=== PATIENT | male | born 1965 | race Caucasian/White ===

== ENCOUNTER 2019-11-23 00:25 | Emergency (ER) | payer SELFPAY ==
[2019-11-23 00:32] VITALS: BP 132/90; PULSE 68; RESP 18; TEMP 36.4; O2SAT 98; BMI 25.1
--- NOTE | 2019-11-23 01:07 | ED_ITS ---
Entered by Stephanie Palomo, acting as scribe for Hortencia Malave MD Nov 23, 2019 00:25 HPI - Headache General: Chief Complaint: Headache Stated Complaint: MIGRAINES, STAGGERING Time Seen by Provider: 11/23/19 01:07 Source: patient and family Mode of arrival: ambulatory Limitations: no limitations History of Present Illness: HPI Narrative: 53 y/o male presents to the ED with complaint of SMITH. Pt states he has been having these episodes off and on since October. states they come on all of a sudden. They are usually triggered by smells or sounds. Pt states he had something similar to this occurr two years ago, but then it went away. MD elicited complaint: headache Pertinent past history: migraines Onset (ago): hour(s) Onset description: suddenly Location: left Severity: moderate Relieving factors: nothing Context: occurred at rest Associated symptoms: Deny chest pain, fever(s), nausea, rash or vomiting Review of Systems Const: Denies: fever or chills Eyes: Denies: change in vision ENMT: Denies: throat pain or mouth pain Card: Denies: chest pain Resp: Denies: shortness of breath GI: Denies: abdominal pain, nausea, vomiting or diarrhea Musc: Denies: back pain or joint pain Skin/Breast: Denies: rash Neuro: Reports: headache; Denies: behavioral changes Psych: Denies: depression Endo: Denies: excessive urination [place]/Lymph: Denies: easy bruising All/Imm: Denies: hives PFSH ED PFSH: Statuses (acute, chronic, etc) shown below reflect problem list status as previously entered and may not be historically accurate Social History Smoking and tobacco status: former smoker Physical Exam Const: COMMON NORMALS: no apparent distress, oriented x3 and healthy appearing HENMT: COMMON NORMALS: normocephalic and external nose normal HEAD & SCALP: normocephalic NOSE: external nose normal Eye: COMMON NORMALS: PERRL PUPIL: Yes PERRL Neck/C-Spine: COMMON NORMALS: full ROM and no lymphadenopathy Chest: COMMONS NORMALS: inspection of chest normal Resp: COMMON NORMALS: normal respiratory effort, no use of accessory muscles and clear to auscultation bilaterally AUSCULTATION: clear to auscultation bilaterally Cardio: COMMON NORMALS: regular rate and regular rhythm RATE: regular rate RHYTHM: regular rhythm GI: COMMON NORMALS: normal to inspection, nondistended, normoactive bowel sounds, soft to palpation, non-tender and no masses PALPATION: Yes soft Back/Pelvis: THORACIC SPINE/UPPER BACK: Yes normal to inspection Extremity: COMMON NORMALS: normal to inspection, full ROM and normal capillary refill Neuro: COMMON NORMALS: oriented x3 Psych: COMMON NORMALS: mental status grossly normal and cooperative Skin: COMMON NORMALS: no rashes or lesions noted GENERAL SKIN EXAM: no rashes or lesions noted Course Vital Signs: Vital signs: Vital Signs Temperature 97.5 F L 11/23/19 00:32 Pulse Rate 68 11/23/19 02:28 Respiratory Rate 16 11/23/19 02:28 Blood Pressure 144/83 11/23/19 02:28 Pulse Oximetry 96 11/23/19 02:28 MDM - Headache MDM Narrative: Medical decision making narrative: Patient presents here with headache with history sounding like trigeminal neuralgia. Patient's head CT shows no signs of subarachnoid hemorrhage. He has no signs of meningitis. History is not consistent with a subarachnoid hemorrhage as it is been interm ittent in nature. Patient is to follow-up with primary care doctor in 3 to 5 days return if worsening. Discharge Plan Discharge Patient Disposition: Home, Self-Care Clinical Impression: Headache Qualifiers: Headache type: unspecified Headache chronicity pattern: unspecified pattern Intractability: not intractable Qualified Code(s): R51 - Headache Condition: Stable Prescriptions: No Action No Known Home Medications RF: 0 Discharge Orders: Discharge Order (Routine); Ordered 11/23/19 Ordered By: Hortencia Malave Discharge Diet: Advance as tolerated Discharge Activity: Resume usual activity Patient Instructions: Acute Headache (ED) Activity Restrictions/Additional Instructions: follow up with pcp in 2-4 days Discharge Date/Time: 11/23/19 02:28 Coding Level of Care Code ED 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
--- NOTE | 2019-11-23 01:12 | CTR_ITS ---
PROCEDURE INFORMATION: Exam: CT Head Without Contrast Exam date and time: 11/23/2019 1:18 AM Age: 53 years old Clinical indication: Pain; Headache not specified; Patient HX: CO SMITH x 2 weeks TECHNIQUE: Imaging protocol: Computed tomography of the head without contrast. Total DLP: 854.51 mGy-cm Radiation optimization: All CT scans at this facility use at least one of these dose optimization techniques: automated exposure control; mA and/or kV adjustment per patient size (includes targeted exams where dose is matched to clinical indication); or iterative reconstruction. COMPARISON: No relevant prior studies available. FINDINGS: Brain: Normal. No hemorrhage. Unremarkable white matter. No mass effect. Ventricles: Normal. No ventriculomegaly. Bones/joints: Unremarkable. No acute fracture. Sinuses: Visualized sinuses are unremarkable. No fluid levels. Mastoid air cells: Visualized mastoid air cells are well aerated. Soft tissues: Unremarkable. CT/CT head wo con* [id number] IMPRESSION: No acute intracranial abnormality. Radiation Dose CTDIVOL = (mGy): DLP = 854.51 (mGy-cm)
[2019-11-23] MEDS: diphenhydrAMINE 50 mg/mL SDV 1mL IM (01:26)
[2019-11-23] MEDS: metoclopramide 5 mg/mL SDV 2 mL 10 MG IM (01:26)
[2019-11-23 01:53] VITALS: BP 131/83; PULSE 68; RESP 16; O2SAT 97
[2019-11-23 02:28] VITALS: BP 144/83; PULSE 68; RESP 16; O2SAT 96
--- NOTE | 2019-11-24 14:49 | DCPLANNER ---
manager program management had message to speak with patient about getting established with a primary care physician. manager program management unable to speak with patient at this time a recording stated that that phone number was not accepting phone calls at this time. manager program management called the phone number [phone].
== END 2019-11-23 02:28 | disposition home or self-care (01) ==
PROVIDERS: Emergency Provider Emergency Medicine
DX: R51 Headache (principal); Z87.891 Personal history of nicotine dependence
CPT/HCPCS: 70450; 96372; 99281; J1200; J2765

== ENCOUNTER 2022-03-24 13:38 | Emergency (ER) | payer SELFPAY ==
[2022-03-24 13:51] VITALS: BP 168/82; PULSE 85; RESP 18; TEMP 37.4; O2SAT 98; BMI 23.7
--- NOTE | 2022-03-24 15:17 | W.ED.GENADLT ---
HPI - General Adult General: Chief complaint: Nausea/Vomiting/Diarrhea Stated complaint: ABD Pain N/V/D Time Seen by Provider: 03/24/22 15:16 History of Present Illness: Patient is a 56-year-old male with no significant past medical history presenting to the emergency room with nausea/vomiting, right lower quadrant abdominal/groin pain, and diarrhea since yesterday night. Patient tells me around 7 PM, she has been feeling unwell. Around 12:00 patient began having diarrhea. Patient denies any recent antibiotics or sick contacts around her. Patient also reports multiple episodes of emesis. Denies any fever or chills, abdominal complaints or complaints at this time. Denies any chest pain or shortness of breath. Onset: yesterday night at 7pm Duration:ongoing Location:home Severity:moderate Associated symptoms: Reports nausea and vomiting; Deny chest pain, dyspnea, rash or palpitations Review of Systems Const: Denies: fever(s) or chills Eyes: Denies: change in vision ENMT: Denies: mouth pain Card: Denies: chest pain or palpitations Resp: Denies: dyspnea or non-productive cough GI: Reports: abdominal pain, nausea, vomiting and diarrhea : Reports: other (+R groin pain); Denies: dysuria Musc: Denies: extremity pain Skin/Breast: Denies: rash or new lesions Neuro: Denies: weakness in extremities Psych: Reports: other (Normal mood) [place]/Lymph: Denies: easy bruising PFSH ED PFSH: Medical History (Updated 03/24/22 @ 18:40 by Ernestina Finley MD) No pertinent past medical history Social History (Updated 03/24/22 @ 15:32 by Ernestina Finley MD) Smoking and tobacco status: former smoker Alcohol intake: never Substance/Drug Use: never Physical Exam Const: COMMON NORMALS: alert HENMT: COMMON NORMALS: atraumatic HEAD & SCALP: atraumatic MOUTH: moist mucous membranes not abnormal Eye: COMMON NORMALS: EOMs intact bilaterally and conjunctivae normal CONJUNCTIVA: Yes conjunctivae normal Neck/C-Spine: COMMON NORMALS: full ROM and supple Resp: COMMON NORMALS: normal respiratory effort and clear to auscultation bilaterally AUSCULTATION: clear to auscultation bilaterally Cardio: COMMON NORMALS: regular rate RATE: regular rate GI: COMMON NORMALS: Soft to palpation and non-tender PALPATION: Yes Soft to palpation OTHER: No focal TTP. NO guarding rebound, guarding, rigidity. No CVA tenderness to percussion. Neg Hancock/Neg McBurney's point tenderness, no suprabupic tenderness to palpation. : OTHER: Normal external genitalia, Testicles non-tender b/l, no erythema. Normal testicular lie, mild tenderness palpation to the right groin, no palpable hernia Extremity: COMMON NORMALS: full ROM Neuro: SENSORIUM/ORIENTATION: Yes alert MOTOR EXAM: No Abnormal motor strength present and Other motor observations present (no focal motor deficits) Psych: COMMON NORMALS: speech normal SPEECH: Yes normal speech MOOD & AFFECT: Yes euthymic mood Course Vital Signs: Vital signs: Vital Signs Temperature 99.4 F 03/24/22 13:51 Pulse Rate 82 03/24/22 21:00 Respiratory Rate 15 03/24/22 20:30 Blood Pressure 128/67 03/24/22 21:00 Pulse Oximetry 96 03/24/22 21:00 [facility] - General Adult Medical Decision Making 56-year-old male with no signet past medical history presenting to the emergency room for evaluation of abdominal pain with nauea/vomiting an diarrhea. On physical symptom patient hemodynamically stable with no focal tenderness palpation the abdomen. exam is intact. White count 11.4. Sodium is 132, potassium 3.3. CT abdomen pelvis negative for any acute finding. UA showed 2+ blood. However no signs of stones on CT. Patient received IVF GI cocktail. Patient is feeling tolerate p.o. Do not acute emergent intra-abdominal pathologies. Rx tylenol PRN abd pain, maalox/pepcid PRN dyspepsia, and zofran PRN nausea/vomiting Disposition: Discharge. Patient counseled regarding diagnostic impression, treatment plan. Patient given ED strict return precautions to return for continuation, worsening, or development of new symptoms. Instructed to f/u w/ PCP regarding symptoms today. Patient verbalized understanding. Lab Data : 03/24/22 15:53 03/24/22 15:53 Radiology Impressions Abdomen/Pelvis CT 03/24/22 17:20 IMPRESSION: 1. Negative for acute inflammatory process in the abdomen or pelvis 2. Spleen enlarged to 14.5 cm. 3. Diverticulosis without diverticulitis. 4. Bilateral dependent atelectasis versus minimal infiltrate. Laboratory Results WBC 11.4 10^3/uL (4.0-10.0) H 03/24/22 15:53 RBC 5.36 10^6/uL (4.1-5.3) H 03/24/22 15:53 Hgb 16.2 g/dL (11.7-16.6) 03/24/22 15:53 Hct 46.7 % (42.0-52.0) 03/24/22 15:53 MCV 87.1 fl (80-94) 03/24/22 15:53 MCH 30.2 pg (28.0-34.0) 03/24/22 15:53 MCHC 34.7 g/dL (30.0-36.0) 03/24/22 15:53 RDW 12.6 % (12.1-15.1) 03/24/22 15:53 Plt Count 187 10^3/cmm (130-400) 03/24/22 15:53 MPV 10.8 fL (7.4-10.4) H 03/24/22 15:53 Neut % (Auto) 88.6 % 03/24/22 15:53 Lymph % (Auto) 5.6 % 03/24/22 15:53 [place] % (Auto) 5.1 % 03/24/22 15:53 Eos % (Auto) 0.0 % 03/24/22 15:53 Baso % (Auto) 0.2 % 03/24/22 15:53 Neut # (Auto) 10.09 10^3/uL (1.8-7.7) H 03/24/22 15:53 Lymph # (Auto) 0.6 10^3/uL (0.8-4.8) L 03/24/22 15:53 [place] # (Auto) 0.6 10^3/uL (0.2-0.9) 03/24/22 15:53 Eos # (Auto) 0.0 10^3/uL (0.0-0.8) 03/24/22 15:53 Baso # (Auto) 0.0 10^3/uL (0.0-0.1) 03/24/22 15:53 Nucleated RBC % (auto) 0 % 03/24/22 15:53 Nucleated RBCs # 0.0 /100WBC 03/24/22 15:53 Sodium 132 mmol/L (136-145) L 03/24/22 15:53 Potassium 3.3 mmol/L (3.5-5.1) L 03/24/22 15:53 Chloride 95 mmol/L (98-107) L 03/24/22 15:53 Carbon Dioxide 26 mmol/L (22-29) 03/24/22 15:53 Anion Gap 14.3 (5-19) 03/24/22 15:53 BUN 11 mg/dL (6-20) 03/24/22 15:53 Creatinine 0.8 mg/dL (0.7-1.2) 03/24/22 15:53 GFR Calculation 100.0 mL/min (90-130) 03/24/22 15:53 Glucose 129 mg/dL (65-115) H 03/24/22 15:53 Calculated Osmolality 275 mOsm/kg (285-295) L 03/24/22 15:53 Calcium 8.6 mg/dL (8.5-10.5) 03/24/22 15:53 Total Bilirubin 1.1 mg/dL (0.15-1.2) 03/24/22 15:53 AST 9 U/L (0-40) 03/24/22 15:53 ALT 13 U/L (0-41) 03/24/22 15:53 Alkaline Phosphatase 72 IU/L (40-130) 03/24/22 15:53 Total Protein 7.4 g/dL (6.6-8.7) 03/24/22 15:53 Albumin 4.3 g/dL (3.5-5.2) 03/24/22 15:53 Globulin 3.1 g/dL (1.3-4.6) 03/24/22 15:53 Lipase 9 U/L (13-60) L 03/24/22 15:53 Urine Color Yellow (Yellow) 03/24/22 20:30 Urine Appearance Clear (CLEAR) 03/24/22 20:30 Urine pH 6.5 (5-7) 03/24/22 20:30 Ur Specific [place] 1.025 (1.005-1.030) 03/24/22 20:30 Urine Protein 1+ (Negative) H 03/24/22 20:30 Urine Glucose (UA) Norm (Normal) 03/24/22 20:30 Urine Ketones Negative (Negative) 03/24/22 20:30 Urine Blood 2+ (Negative) H 03/24/22 20:30 Urine Nitrate Negative (Negative) 03/24/22 20:30 Urine Bilirubin Neg (Negative) 03/24/22 20:30 Urine Urobilinogen 1 mg/dL (Negative) H 03/24/22 20:30 Ur Leukocyte Esterase Negative (Negative) 03/24/22 20:30 Urine RBC 5-10 /hpf (0-2) H 03/24/22 20:30 Urine WBC 0-4 /hpf (0-5) H 03/24/22 20:30 Ur Squamous Epith Cells 0-4 /hpf (0-5) H 03/24/22 20:30 Amorphous Sediment Trace /hpf 03/24/22 20:30 Urine Bacteria Trace /hpf (NONE) 03/24/22 20:30 Urine Mucus 2+ /hpf 03/24/22 20:30 Discharge Plan Discharge Patient Disposition: Home Clinical Impression: Abdominal pain, Nausea and vomiting, Diarrhea Condition: Stable Prescriptions: New Pepcid 20 mg tablet 20 mg PO BID PRN (Reason: abdominal pain) 10 Days Qty: 20 0RF Maalox Advanced 1,000-60 mg tablet,chewable 1 tab PO TID PRN (Reason: abdominal pain) 7 Days Qty: 21 0RF Discharge Orders: Discharge ED (Routine); Ordered 03/24/22 Ordered By: Ernestina Finley Discharge Diet: Advance as tolerated Discharge Activity: Increase activity as tolerated Activity Restrictions/Additional Instructions: Please come back if you have any worsening abdominal pain, fever or chills, nausea or vomiting, diarrhea, blood in the stool, inability hold down liquid or solids, or any new concerning complaints. Coding Level of Care Code ED Senior Tax Specialist for Chg Fwd Exam Comprehensive
[2022-03-24] MEDS: sodium chloride 0.9% 1,000 ML 999 ML IV (16:00)
[2022-03-24] MEDS: famotidine 20 mg/2 mL INJ IVP (16:02)
[2022-03-24] MEDS: ondansetron 2 mg/ML SDV 2 mL 4 MG IVP (16:04)
[2022-03-24 16:19] LABS: Basophils % 0.2 %; Hematocrit 46.7 % (42.0-52.0); Hemoglobin 16.2 g/dL (11.7-16.6); Lymphocytes # 0.6 10^3/uL (0.8-4.8); Lymphocytes % 5.6 %; Mean Corpuscular HGB Conc 34.7 g/dL (30.0-36.0); Mean Corpuscular Hemoglobin 30.2 pg (28.0-34.0); Mean Corpuscular Volume 87.1 fl (80-94); Mean Platelet Volume 10.8 fL (7.4-10.4); Monocytes # 0.6 10^3/uL (0.2-0.9); Monocytes % 5.1 %; Neutrophils # 10.09 10^3/uL (1.8-7.7); Neutrophils % 88.6 %; Nucleated Red Blood Cells % 0 %; Platelet Count 187 10^3/cmm (130-400); Red Blood Count 5.36 10^6/uL (4.1-5.3); Red Cell Distribution Width 12.6 % (12.1-15.1); White Blood Count 11.4 10^3/uL (4.0-10.0)
[2022-03-24 16:32] LABS: Alanine Aminotransferase 13 U/L (0-41); Albumin Level 4.3 g/dL (3.5-5.2); Alkaline Phosphatase 72 IU/L (40-130); Anion Gap 14.3 (5-19); Aspartate Amino Transferase 9 U/L (0-40); Blood Urea Nitrogen 11 mg/dL (6-20); Calcium 8.6 mg/dL (8.5-10.5); Carbon Dioxide 26 mmol/L (22-29); Chloride 95 mmol/L (98-107); Globulin 3.1 g/dL (1.3-4.6); Glucose 129 mg/dL (65-115); Lipase 9 U/L (13-60); Osmolality Calculated 275 mOsm/kg (285-295); Potassium 3.3 mmol/L (3.5-5.1); Sodium 132 mmol/L (136-145); Total Bilirubin 1.1 mg/dL (0.15-1.2); Total Protein 7.4 g/dL (6.6-8.7)
--- NOTE | 2022-03-24 17:20 | CTR_ITS ---
PROCEDURE INFORMATION: Exam: CT Abdomen And Pelvis Without Contrast Exam date and time: 03/24/2022 5:31 PM Age: 56 years old Clinical indication: Pain; Other: Groin, ; additional info: Rlq pain R groin pain TECHNIQUE: Imaging protocol: Computed tomography of the abdomen and pelvis without contrast. Radiation optimization: All CT scans at this facility use at least one of these dose optimization techniques: automated exposure control; mA and/or kV adjustment per patient size (includes targeted exams where dose is matched to clinical indication); or iterative reconstruction. COMPARISON: No relevant prior studies available. RADIATION DOSE METRICS: Total DLP (mGy-cm): 1627.52 FINDINGS: Lungs: Bilateral dependent atelectasis versus minimal infiltrate. Liver: Normal. No mass. Gallbladder and bile ducts: Normal. No calcified stones. No ductal dilation. Pancreas: Normal. No ductal dilation. Spleen: Spleen enlarged to 14.5 cm. Adrenal glands: Normal. No mass. Kidneys and ureters: Normal. No hydronephrosis. Stomach and bowel: Diverticulosis without diverticulitis. Appendix: No evidence of appendicitis. Intraperitoneal space: Unremarkable. No free air. No significant fluid collection. Vasculature: Unremarkable. No abdominal aortic aneurysm. Lymph nodes: Unremarkable. No enlarged lymph nodes. Urinary bladder: Unremarkable as visualized. Reproductive: Unremarkable as visualized. Bones/joints: Unremarkable. No acute fracture. Soft tissues: Unremarkable. CT/CT abdomen pelvis wo con [id number] IMPRESSION: 1. Negative for acute inflammatory process in the abdomen or pelvis 2. Spleen enlarged to 14.5 cm. 3. Diverticulosis without diverticulitis. 4. Bilateral dependent atelectasis versus minimal infiltrate.
[2022-03-24] MEDS: lidocaine 2% viscous 15 ML, aluminum-mag hydrox-simethicon 30 ML, sucralfate oral liq 1 GM PO (17:38)
[2022-03-24 19:00] VITALS: BP 126/71; PULSE 84; RESP 18; O2SAT 95
[2022-03-24 19:30] VITALS: BP 130/64; PULSE 83; RESP 19; O2SAT 96
[2022-03-24 20:00] VITALS: BP 109/48; PULSE 86; RESP 16; O2SAT 94
[2022-03-24 20:30] VITALS: BP 130/64; PULSE 83; RESP 15; O2SAT 96
--- NOTE | 2022-03-24 20:35 | PC.NURSE ---
pt unable to void, straight cath per Dr VENTURA
[2022-03-24 20:38] LABS: Protein Urine 1+ (Negative); Specific Gravity, Urine 1.025 (1.005-1.030); Urine Appearance Clear (CLEAR); Urine Color Yellow (Yellow); pH Urine 6.5 (5-7)
[2022-03-24 20:39] LABS: Add Urine Microscopic? YES; Bilirubin Urine Neg (Negative); Blood Urine 2+ (Negative); Glucose Urine UA Norm (Normal); Ketones Urine Negative (Negative); Leukocyte Esterase Urine Negative (Negative); Nitrate Urine Negative (Negative); Urobilinogen Urine 1 mg/dL (Negative)
[2022-03-24 20:51] LABS: Add Urine Culture? No; Amorphous Sediment Urine TRACE /hpf; Mucus Urine 2+ /hpf; Squamous Epithelial Cell Urine 0-4 /hpf (0-5); WBC Urine 0-4 /hpf (0-5)
[2022-03-24 20:52] LABS: Bacteria Urine TRACE /hpf
[2022-03-24 21:00] VITALS: BP 128/67; PULSE 82; O2SAT 96
== END 2022-03-24 21:27 | disposition home or self-care (01) ==
PROVIDERS: Emergency Provider Emergency Medicine
DX: R10.31 Right lower quadrant pain (principal); R11.2 Nausea with vomiting, unspecified; R19.7 Diarrhea, unspecified
CPT/HCPCS: 36415; 74176; 80053; 81001; 83690; 85025; 96361; 96374; 96375; 99284; J2405; J3490; J7030